=== PATIENT | female | born 1970 | race Caucasian/White ===

== ENCOUNTER 2016-09-24 16:17 | Emergency (ER) | payer BC ==
[2016-09-24 16:23] VITALS: BMI 26.5
--- NOTE | 2016-09-24 17:38 | PDOC ---
History of Present Illness - General History Source: Patient Exam Limitations: No Limitations <Ronan Gaona - Last Filed: 09/24/16 19:02> <Nick Alcaraz - Last Filed: 09/24/16 19:55> - General Chief Complaint: Chest Pain Stated Complaint: PAIN Time Seen by Provider: 09/24/16 17:37 - History of Present Illness Initial Comments: 09/24/16 18:19 The patient is a 46 year old female presenting with her family, with a significant past medical history of fibromyalgia, herniated discs, right tennis elbow and carpal tunnel, who presents to the emergency department with chest pain since yesterday. She reports that her chest pain ranges from mild to moderate, with radiation to the back. She notes that her pain is exacerbated when she takes a deep breath and coughs. She also reports back pain localized in her mid and lower back. She also reports a dry cough associated with her chief complaint, as well a runny nose. She states that she has taken Naproxen and Benadryl during this time frame. She also states that she has not been sleeping well and has increased her smoking due to stress of her mothers health issues. The patient denies shortness of breath, headache and dizziness. Denies fever, chills, nausea, vomit, diarrhea and constipation. Denies dysuria, frequency, urgency and hematuria. Allergies: None Past surgical history: None reported Social history: Cigarette use (20 daily). PMD - (Ronan Gaona) Past History <Ronan Gaona - Last Filed: 09/24/16 19:02> - Psycho/Social/Smoking Cessation Hx Anxiety: No Suicidal Ideation: No Smoking History: Current every day smoker Have you smoked in the past 12 months: Yes Number of Cigarettes Smoked Daily: 20 Information on smoking cessation initiated: No Hx Alcohol Use: No Drug/Substance Use Hx: No Substance Use Type: None <Nick Alcaraz - Last Filed: 09/24/16 19:55> - Past Medical History Allergies/Adverse Reactions: Allergies Allergy/AdvReac Type Severity Reaction Status Date / Time No Known Allergies Allergy Verified 09/24/16 16:20 Home Medications: Ambulatory Orders Azithromycin [Zithromax 250mg Tablets -] 250 mg PO UTDICT #6 tab 09/24/16 Gabapentin 0 mg PO HS 09/24/16 Methocarbamol [Robaxin -] 750 mg PO BID #20 tablet 09/24/16 Tramadol HCl 50 mg PO TID #10 tablet MDD 3 09/24/16 Review of Systems - Review of Systems Able to Perform ROS?: Yes <Ronan Gaona - Last Filed: 09/24/16 19:02> <Nick Alcaraz - Last Filed: 09/24/16 19:55> - Review of Systems Comments:: 09/24/16 18:19 CONSTITUTIONAL: No fever, no chills, no fatigue EYES: No visual changes ENT: No ear pain, no sore throat CARDIOVASCULAR: (+) Chest pain. No palpitations RESPIRATORY: No cough, no SOB GI: No abdominal pain, no nausea, no vomiting, no constipation, no diarrhea GENITOURINARY: No dysuria, no frequency, no hematuria MUSKULOSKELETAL: No backpain, no joint pain, no myalgias SKIN: No rash NEURO: No headache (Ronan Gaona) *Physical Exam <Ronan Gaona - Last Filed: 09/24/16 19:02> <Nick Alcaraz - Last Filed: 09/24/16 19:55> - Vital Signs Last Vital Signs Temp Pulse Resp BP Pulse Ox 97.7 F 82 18 141/95 100 09/24/16 16:20 09/24/16 16:20 09/24/16 16:20 09/24/16 16:20 09/24/16 16:20 - Physical Exam Comments: 09/24/16 18:19 CONSTITUTIONAL: Well-appearing; well-nourished; in no apparent distress HEAD: Normocephalic; atraumatic EYES: PERRL; EOM intact ENMT: External appears normal; normal oropharynx NECK: Supple; non-tender; no cervical lymphadenopathy CARD: Normal S1, S2; no murmurs, rubs, or gallops RESP: (+) Mild ronchi at the right base. Normal chest excursion with respiration ; no wheezes. MUSCULOSKELETAL: (+) Reproducible paraspinal tenderness along the entire length of the spine. ABD: Soft, non-distended; no palpable organomegaly, no palpable hernias EXT: Normal ROM in all four extremities; non-tender to palpation; distal pulses intact. No edema, assymetry or tenderness. SKIN: Warm, dry, no rash NEURO: No focal neurological deficiencies. (Ronan Gaona) Heart Score/ECG Review #1 ECG reviewed & interpreted by me at: 19:02 <Ronan Gaona - Last Filed: 09/24/16 19:02> <Nick Alcaraz - Last Filed: 09/24/16 19:55> #1 09/24/16 16:29 Ventricular rate: 76 bpm Normal sinus rhythm (Ronan Gaona) - ADDITIONAL ORDERS Additional order review: Laboratory Results 09/24/16 17:59 Urine HCG, Qual Negative - RADIOLOGY Radiology Studies Ordered: Category Date Time Status CHEST PA & LAT [RAD] Stat Radiology 09/24/16 18:50 Taken - Medications Given in the ED: ED Medications Discontinued Medications Generic Name Dose Route Start Last Admin Trade Name Freq PRN Reason Stop Dose Admin Ketorolac Tromethamine 60 mg 09/24/16 18:13 09/24/16 18:24 Toradol Injection - IM 09/24/16 18:14 60 mg ONCE ONE Administration Methocarbamol 1,000 mg 09/24/16 18:13 09/24/16 18:24 Robaxin - PO 09/24/16 18:14 1,000 mg ONCE ONE Administration Medical Decision Making <Ronan Gaona - Last Filed: 09/24/16 19:02> <Nick Alcaraz - Last Filed: 09/24/16 19:55> - Medical Decision Making 09/24/16 19:48 Patient is a well-appearing 46-year-old female with history of fibromyalgia and smoking who presents with signs and symptoms of acute bronchitis and musculoskeletal chest and back pain. In the ER, patient is awake and alert, well -appearing, with stable vital signs. EKG is within normal limit, without evidence of acute ischemia or right sided heart strain. Chest x-ray reveals no evidence of infiltrate or effusion. There is no cardiomegaly. Using the Perc criteria, patient is ruled out for PE. Patient is safe for discharge with Zithromax which has been shown to benefit patient's with acute bronchitis with history of smoking, NSAIDs and tramadol for breakthrough pain. (Nick Alcaraz) *DC/Admit/Observation/Transfer <Ronan Gaona - Last Filed: 09/24/16 19:02> <Nick Alcaraz - Last Filed: 09/24/16 19:55> Diagnosis at time of Disposition: Atypical chest pain Acute bronchitis Qualifiers: Bronchitis organism: unspecified organism Qualified Code(s): J20.9 - Acute bronchitis, unspecified - Discharge Dispostion Disposition: HOME Condition at time of disposition: Stable - Referrals Referrals: STAFF,NOT ON [Primary Care Provider] - pmd, one week [Other] - Patient Instructions Printed Discharge Instructions: DI for Atypical Chest Pain, DI for Acute Bronchitis - Attestations Scribe Attestion: 09/24/16 18:18 Documentation prepared by Ronan Gaona, acting as medical scheduler for Nick Alcaraz MD (Ronan Gaona) Physician Attestion: 09/24/16 19:47 The documentation was prepared by the scribe under my direct supervision. I have reviewed the documentation which correctly represents the findings, medical decision-making and critical action taken by me. (Nick Alcaraz)
[2016-09-24] MEDS ORDERED: KETOROLAC TROMETHAMINE 60 MG/2 ML VIAL IM ONE (18:13)
[2016-09-24] MEDS ORDERED: METHOCARBAMOL 500 MG TABLET PO ONE (18:13)
[2016-09-24] MEDS ORDERED: METHOCARBAMOL 500 MG TABLET ONE (18:17)
[2016-09-24] MEDS ORDERED: KETOROLAC TROMETHAMINE 60 MG/2 ML VIAL ONE (18:18)
[2016-09-24 20:02] VITALS: BP 140/79; PULSE 75; TEMP 98.4
--- NOTE | 2016-09-25 16:29 | EKG ---
Test Reason : Blood Pressure : / mmHG Vent. Rate : 076 BPM Atrial Rate : 076 BPM P-R Int : 138 ms QRS Dur : 086 ms QT Int : 390 ms P-R-T Axes : 063 057 045 degrees QTc Int : 438 ms NORMAL SINUS RHYTHM NORMAL ECG NO PREVIOUS ECGS AVAILABLE Confirmed by RAEANN PURCELL MD ([id number]) on 09/25/2016 4:29:32 PM Referred By: Confirmed By:RAEANN PURCELL MD
== END 2016-09-24 20:02 | disposition home or self-care (01) ==
LOC: JER 16:17
PROC: 3E0233Z Introduction of Anti-inflammatory into Muscle, Percutaneous Approach (ICD-10-PCS; principal; 2016-09-24)
DX: J20.9 Acute bronchitis, unspecified (principal); R07.89 Other chest pain; F17.210 Nicotine dependence, cigarettes, uncomplicated
CPT/HCPCS: 71020-TC; 84703; 93005; 93010; 96372; 99283-25